=== PATIENT | female | born 1955 | race Asian ===

== ENCOUNTER 2018-05-02 09:51 | Day surgery (SDC) | payer OTHER ==
[~2018-05-02 09:51] MED LIST: CEFAZOLIN 1 GM INJ; METOCLOPRAMIDE 10 MG INJ
[2018-05-02] MEDS ORDERED: MIDAZOLAM 1 MG/ML 2 ML INJ (12:15)
[2018-05-02] MEDS ORDERED: FENTAnyl 50 MCG/ML VIAL (12:15)
[2018-05-02] MEDS ORDERED: PROPOFOL 20 ML (12:16)
[2018-05-02] MEDS ORDERED: DEXAMETHASONE 4 MG/ML 1 ML INJ (12:16)
[2018-05-02] MEDS ORDERED: LIDOCAINE 2% (SDV) 5 ML INJ (12:16)
[2018-05-02] MEDS: POLYMYXIN/BACITRACIN 1L IRRIG (13:50)
[2018-05-02] MEDS: BUPIVACAINE 0.5% (SDV) 30 ML INJ (13:50)
[2018-05-02] MEDS: POVIDONE IODINE 10% 28.4 GM OINT (13:58)
[2018-05-02] MEDS ORDERED: FENTAnyl 50 MCG/ML VIAL IV ×2 (14:30)
[2018-05-02] MEDS ORDERED: HYDROmorphONE 1 MG/5 ML IV SYRINGE IV ×2 (14:30)
[2018-05-02] MEDS ORDERED: LABETALOL HCL 20MG INJ IV (14:30)
[2018-05-02] MEDS ORDERED: hydrALAzine 20 MG INJ IV (14:30)
== END 2018-05-02 16:00 | disposition home or self-care (01) ==
LOC: SDS 09:51
DX: M79.5 Residual foreign body in soft tissue (principal); I10 Essential (primary) hypertension
CPT/HCPCS: 28190